=== PATIENT | female | born 1965 | race Hispanic/Latino ===

== ENCOUNTER 2020-01-04 11:58 | Emergency (ER) | payer SELFPAY ==
[2020-01-04] MEDS ORDERED: Lidocaine 2% PF 5 ML VIAL ONE (12:21)
== END 2020-01-04 12:59 | disposition home or self-care (01) ==
LOC: BURERS 11:58
DX: L60.0 Ingrowing nail (principal); E78.5 Hyperlipidemia, unspecified; I10 Essential (primary) hypertension; F17.210 Nicotine dependence, cigarettes, uncomplicated; Z79.899 Other long term (current) drug therapy
CPT/HCPCS: 11750; J2001